=== PATIENT | female | born 1980 | race African-American/Black ===

== ENCOUNTER 2017-08-04 10:19 | Outpatient (CLI) | payer MEDICAID ==
--- NOTE | 2017-08-04 11:01 | Non Stress Test Report ---
Non Stress Test Datetime Report Generated by CPN: 08/04/2017 11:01 DEMOGRAPHIC EGA NST: 37.6 INDICATION Indication for Study: Ordered by Provider; Other Indication for Study (NST) Other: AMA MONITORING Monitor Explained: Monitor Explained; Test Explained; Patient Verbalized Understanding Time on Monitor: 08/04/2017 10:30 Time off Monitor: 08/04/2017 10:51 NST Duration: 21 NST INTERVENTIONS NST Interventions: PO Hydration Physician Notified NST: A Noguera, CNM BABY A: [id number] BABY A Movement : Present Contraction Frequency : none FHR Baseline : 135 Accelerations : 15X15 Decelerations : None Variability : Moderate 6-25bpm NST Review: Meets Criteria for Reactive NST NST Review and Verified By : Ashkan Burns RN NST Results: Reactive NST REPORT Report Trigger: Send Report
== END 2017-08-04 10:55 | disposition home or self-care (01) ==
LOC: LC 10:19
PROVIDERS: ATTEND Obstetrics & Gynecology
PROC: 4A1HXCZ Monitoring of Products of Conception, Cardiac Rate, External Approach (ICD-10-PCS; principal; 2017-08-04)
DX: Z34.93 Encounter for supervision of normal pregnancy, unspecified, third trimester (principal)
CPT/HCPCS: 59025

== ENCOUNTER 2017-08-22 02:54 | Outpatient (CLI) | payer MEDICAID ==
[2017-08-22 03:26] LABS: APPEARANCE,URINE CLOUDY; BILIRUBIN,URINE NEGATIVE (NEGATIVE); COLOR,URINE YELLOW; GLUCOSE, URINE NEGATIVE (NEGATIVE); KETONES,URINE NEGATIVE (NEGATIVE); LEUKOCYTE ESTERASE,URINE NEGATIVE (NEGATIVE); NITRITE,URINE NEGATIVE (NEGATIVE); PROTEIN,URINE NEGATIVE (NEGATIVE); URINE SPECIFIC GRAVITY 1.006; UROBILINOGEN,URINE NEGATIVE mg/dL (<2.0)
[2017-08-22 03:49] LABS: URINE AMPHETAMINES SCREEN NEGATIVE; URINE BARBITURATES SCREEN NEGATIVE; URINE BENZODIAZEPINES SCREEN NEGATIVE; URINE COCAINE SCREEN NEGATIVE; URINE MARIJUANA (THC) SCREEN NEGATIVE; URINE METHADONE SCREEN NEGATIVE; URINE PHENCYCLIDINE SCREEN NEGATIVE
--- NOTE | 2017-08-22 05:44 | Non Stress Test Report ---
Non Stress Test Datetime Report Generated by CPN: 08/22/2017 05:43 DEMOGRAPHIC EGA NST: 40.3 INDICATION Indication for Study: Ordered by Provider MONITORING Monitor Explained: Monitor Explained; Test Explained; Patient Verbalized Understanding Time on Monitor: 08/22/2017 04:58 Time off Monitor: 08/22/2017 05:24 NST Duration: 26 NST INTERVENTIONS NST Interventions: PO Hydration Physician Notified NST: Dr Roy BABY A: [id number] BABY A Contraction Frequency : 3-4 FHR Baseline : 140 Accelerations : 15X15 Decelerations : None Variability : Moderate 6-25bpm NST Review: Meets Criteria for Reactive NST NST Review and Verified By : Heidy De Oliveira RN NST Results: Reactive NST REPORT Report Trigger: Send Report
== END 2017-08-22 05:33 | disposition home or self-care (01) ==
LOC: LC 02:54
PROVIDERS: ATTEND Student in an Organized Health Care Education/Training Program
PROC: 4A1HXCZ Monitoring of Products of Conception, Cardiac Rate, External Approach (ICD-10-PCS; principal; 2017-08-22)
DX: Z34.93 Encounter for supervision of normal pregnancy, unspecified, third trimester (principal)
CPT/HCPCS: 59025; 80307; 81005

== ENCOUNTER 2017-08-22 10:15 | Inpatient (IN) | payer MEDICAID ==
[2017-08-22] MEDS ORDERED: PENICILLIN G-K 5 MILLION UNIT VIAL ONE ×2 (10:31→14:18)
[2017-08-22] MEDS ORDERED: RINGERS SOLUTION,LACTATED 1,000 ML IV ONE (10:33)
[2017-08-22] MEDS ORDERED: PENICILLIN G POTASSIUM 5,000,000 UNIT in DEXTROSE 5%-WATER 100 ML IV ONE (10:33)
[2017-08-22] MEDS ORDERED: OXYTOCIN/NORMAL SALINE 20 UNIT/1,000 ML RTUINJ ONE (10:53)
[2017-08-22] MEDS ORDERED: MISOPROSTOL 0.2 MG TABLET ONE (10:53)
[2017-08-22] MEDS ORDERED: LIDOCAINE 1% INJ-PF (10 MG/ML) 30 ML SDV ONE (10:53)
[2017-08-22 11:27] LABS: ABSOLUTE LYMPHOCYTES (AUTO) 1.3 10^3/uL (0.5-4.7); ABSOLUTE MONOCYTES (AUTO) 0.4 10^3/uL (0.1-1.4); ABSOLUTE NEUT (AUTO) 8.4 10^3/uL (1.7-8.2); BASOPHILS % (AUTO) 0.4 % (0-2); EOSINOPHILS % (AUTO) 0.2 % (0-6); HEMATOCRIT 36.2 % (36.0-47.0); HEMOGLOBIN 12.4 g/dL (12.0-15.5); LYMPHOCYTES % (AUTO) 12.9 % (13-45); MEAN CORPUSCULAR HEMOGLOBIN 31.6 pg (27.0-33.4); MEAN CORPUSCULAR HGB CONC 34.2 g/dL (32.0-36.0); MEAN CORPUSCULAR VOLUME 92 fl (80-97); MONOCYTES % (AUTO) 3.9 % (3-13); PLATELET COUNT 190 10^3/uL (150-450); RED BLOOD COUNT 3.93 10^6/uL (3.72-5.28); RED CELL DISTRIBUTION WIDTH 14.2 % (11.5-14.0); SEGMENTED NEUTROPHILS % (AUTO) 82.6 % (42-78); TOTAL CELLS COUNTED % (AUTO) 100 %; WHITE BLOOD COUNT 10.1 10^3/uL (4.0-10.5)
[2017-08-22] MEDS ORDERED: EPHEDRINE SULFATE INJ 50 MG/1 ML AMPULE ONE (11:34)
[2017-08-22] MEDS ORDERED: FENTANYL CITRATE INJ/PF 100 MCG/2 ML AMPUL ONE (11:34)
[2017-08-22] MEDS ORDERED: BUPIVACAINE HCL 0.25 % INJ/PF (2.5 MG/1 ML) 30 ML VIAL ONE (11:35)
[2017-08-22] MEDS ORDERED: PHENYLEPHRINE HCL INJ/PF 10 MG/1 ML SDV ONE (11:35)
[2017-08-22] MEDS ORDERED: FENTANYL/BUPIVACAINE/NS/PF 300 MCG/150 ML RTUINJ EPI ONE (11:35)
[2017-08-22] MEDS ORDERED: PENICILLIN G POTASSIUM 2,500,000 UNIT in DEXTROSE 5%-WATER 50 ML IV SCH (14:30)
[2017-08-22] MEDS ORDERED: ACETAMINOPHEN 325 MG TABLET PO PRN (14:35)
--- NOTE | 2017-08-22 14:47 | Admission Physical ---
Datetime Report Generated by CPN: 08/22/2017 14:47 CURRENT ADMISSION Chief Complaint: Uterine Contractions Indication for Induction: Not Applicable Admit Impression : Term, Intrauterine ; Active Labor Admit Plan: Admit to Unit; Initiate Labor Protocol ALLERGIES Medication Allergies: No Medication Allergies: No Known Allergies (08/22/2017) Latex: No Latex Allergies Food Allergies: none Environmental Allergies: none OBSTETRICAL HISTORY EDC: 08/19/2017 00:00 : 2 Para: 1 Term: 1 : 0 SAB: 0 IAB: 0 Ectopic: 0 Livin Cesareans: 0 VBACs: 0 Multiple Births: 0 Gestational Diabetes: No Rh Sensitization: No Incompetent Cervix: No JAZIEL: No Infertility: No ART Treatment: No Uterine Anomaly: No IUGR: No Hx Previous C/S: No Macrosomia: No Hx Loss/Stillborn: No PIH: No Hx : No Placenta Previa/Abruption: No Depression/PP Depression: No PTL/PROM: No Post Hemorrhage: No Current Procedures: Ultrasound; NST Obstetrical History Comments: G1: 40 week male 6 lb 14 oz G2: Current, AMA SEE RECORDS Alcohol: No Marijuana : No Cocaine: No Other Illicit Drugs: No Cigarettes: Former Smoker. [id number] Cigarette Comments: stopped when she found out she was MEDICAL HISTORY Diabetes: No Blood Transfusion: No Pulmonary Disease (Asthma, TB): Yes Breast Disease: No Hypertension: No Senior Counsel Surgery: No Heart Disease: No Hosp/Surgery: Yes Autoimmune Disorder: No Anesthetic Complications: No Kidney Disease: No Abnormal Pap Smear: No Neuro/Epilepsy: No Psychiatric Disorders: No Other Medical Diseases: No Hepatitis/Liver Disease: No Significant Family History: No Varicosities/Phlebitis: No Trauma/Violence : No Thyroid Dysfunction: No Medical History Comments: asthma, anemia, hospitalization childbirth INFECTIOUS HISTORY Gonorrhea: No Genital Herpes: No Chlamydia: No Tuberculosis: No Syphilis: No Hepatitis: No HIV/AIDS Exposure: No Rash or Viral Illness: No HPV: No PHYSICAL EXAM General: Normal HEENT: Deferred Neurologic: Normal Thyroid: Deferred Heart: Normal Lungs: Normal Breast: Normal Back: Normal Abdomen: Normal Genitourinary Exam: Normal Extremities: Normal DTRs: Normal Pelvic Type: Adequate Physical Exam Comments: pelvis proven to 8lbs 6 oz Vital Signs: Reviewed; Within Normal Limits VAGINAL EXAM Contraction Comments: 2-3 MEMBRANES Membranes: Intact FETUS A EGA: 40.3 Monitoring: External US FHR- Baseline: 125 Variability: Moderate 6-25bpm Accelerations: 15X15 Decelerations: None FHR Category: Category I Presentation: Vertex Admit Comment: 36yo into L_D this afternoon after being discharge at 0500 in early labor. Pt. is B positive, RI, GBS pos with 2nd dose of PCN on board. Medical hx significant for obesity with an elevated 1hr glucose test in the third trimester but normal 3hr. Pt. denies any other signficant medical hx. Has epidural at this time and reports relief of pain with just intermittent perineal pressure at this time. PLANS FOR LABOR AND DELIVERY Labor and Delivery: None Pain Management: Epidural Feeding Preference: Formula Circumcision: Yes INFORMED CONSENT Assignment: Carlotta Melissa MD Signature: with User ID: [email or web address] : with User ID: [email or web address]
--- NOTE | 2017-08-22 14:53 | L&D Progress Notes ---
PROGRESS NOTES Datetime Report Generated by CPN: 08/22/2017 14:53 PROGRESS NOTE Impression: Normal Progression of Labor Procedures: Artificial ROM; Sterile Vag Exam Plan: Continue Present Management Informed Consent Obtained: Vaginal Delivery; Risks, Benefits and Alternatives Discussed Vital Signs : Reviewed; Within Normal Limits VAGINAL EXAM Dilatation: 7 Effacement: 100 Station: -1 Contractions: 3 Contractions: 2-3 MEMBRANES Membranes: Ruptured Membranes: Intact Amniotic Fluid Color: Clear FETUS A Monitoring: External US Decelerations: None FHR Category: Category I Presentation: Vertex SIGNATURE SIGNATURE: [id number] SIGNATURE: [id number] SIGNATURE: [id number] SIGNATURE: [id number] Assignment: Carlotta Melissa MD Signature: with User ID: [email or web address] : with User ID: [email or web address]
[2017-08-22] MEDS ORDERED: PSEUDOEPHEDRINE HCL 30 MG TABLET PO PRN (18:06)
[2017-08-22] MEDS ORDERED: PROMETHAZINE HCL 25 MG TABLET PO PRN (18:06)
[2017-08-22] MEDS ORDERED: MAGNESIUM HYDROXIDE SUSP 30 ML UDCUP PO PRN (18:06)
[2017-08-22] MEDS ORDERED: ACETAMINOPHEN 650 MG SUPP.RECT PR PRN (18:06)
[2017-08-22] MEDS ORDERED: DIBUCAINE 1% OINTMENT 28 GM TP PRN (18:06)
[2017-08-22] MEDS ORDERED: OXYTOCIN/NORMAL SALINE 20 UNIT/1,000 ML RTUINJ IV PRN (18:06)
[2017-08-22] MEDS ORDERED: MEASLES,MUMPS&RUBELLA VACC/PF 0.5 ML VIAL SUBCUT PRN (18:06)
[2017-08-22] MEDS ORDERED: NA PHOS,M-B/NA PHOS,DI-BA (ADULT) 133 ML ENEMA PR PRN (18:06)
[2017-08-22] MEDS ORDERED: DIPH/PERTUSS(ACELL)/TETANUS VAC/PF 0.5 ML SYR (>=10YO) IM PRN (18:06)
[2017-08-22] MEDS ORDERED: ACETAMINOPHEN WITH CODEINE #3 TABLET PO PRN ×2 (18:06)
[2017-08-22] MEDS ORDERED: BENZOCAINE/MENTHOL AEROSOL SPRAY 56 ML TOP PRN (18:06)
[2017-08-22] MEDS ORDERED: ZOLPIDEM TARTRATE 5 MG TABLET PO PRN (18:06)
[2017-08-22] MEDS ORDERED: PROMETHAZINE HCL INJ 25 MG/1 ML VIAL IV PRN (18:06)
[2017-08-22] MEDS ORDERED: DIPHENHYDRAMINE HCL 25 MG CAPSULE PO PRN (18:06)
[2017-08-22] MEDS ORDERED: PROMETHAZINE HCL 25 MG SUPP.RECT PR PRN (18:06)
[2017-08-22] MEDS ORDERED: GLYCERIN/WITCH HAZEL LEAF 1 EACH MED..PAD TP PRN (18:06)
[2017-08-22] MEDS ORDERED: ALBUTEROL SULFATE HFA (90 MCG/PUFF) 8 GM MDI (1 MDI/ER DISP) IH PRN (18:07)
[2017-08-22] MEDS ORDERED: ALBUTEROL SULFATE HFA (90 MCG/PUFF) 200 PUFF/8.5 GM MDI IH PRN (18:26)
[2017-08-22] MEDS ORDERED: IBUPROFEN 800 MG TABLET ONE (20:15)
[2017-08-22] MEDS: IBUPROFEN 800 MG TABLET PO SCH (20:31)
[2017-08-22] MEDS: FAMOTIDINE 20 MG TABLET PO SCH (21:53)
[2017-08-23] MEDS: IBUPROFEN 800 MG TABLET PO SCH ×3 (05:04→21:15)
[2017-08-23 06:49] LABS: HEMATOCRIT 33.6 % (36.0-47.0); HEMOGLOBIN 11.4 g/dL (12.0-15.5); MEAN CORPUSCULAR HEMOGLOBIN 31.3 pg (27.0-33.4); MEAN CORPUSCULAR VOLUME 92 fl (80-97); PLATELET COUNT 176 10^3/uL (150-450); RED BLOOD COUNT 3.65 10^6/uL (3.72-5.28); RED CELL DISTRIBUTION WIDTH 14.3 % (11.5-14.0); WHITE BLOOD COUNT 14.4 10^3/uL (4.0-10.5)
[2017-08-23] MEDS: PRENATAL VITAMIN W DHA CAPSULE PO SCH (09:50)
[2017-08-23] MEDS: SENNOSIDES/DOCUSATE 8.6-50 MG 1 EACH TABLET PO SCH (09:50)
[2017-08-23] MEDS: DOCUSATE SODIUM 100 MG CAPSULE PO SCH ×2 (09:50→18:51)
[2017-08-23] MEDS: FERROUS SULFATE 325 MG TABLET PO SCH ×2 (09:50→18:51)
[2017-08-23] MEDS: FAMOTIDINE 20 MG TABLET PO SCH ×2 (09:52→21:15)
--- NOTE | 2017-08-23 10:03 | PDOC PROGRESS REPORT ---
Subjective-OB Progress Note for:: 08/23/17 Subjective: Sitting up in bed, doing well, baby sleeping, voiding, no c/o Physical Exam (OB) Vital Signs: Temp Pulse Resp BP Pulse Ox 98.0 F 73 15 107/59 L 99 08/23/17 08:12 08/23/17 08:12 08/23/17 08:12 08/23/17 08:12 08/23/17 08:12 - PIH/Pre-Eclampsia DTR's: 2 + Clonus: Negative Headache: Absent Epigastric Pain: No Visual Changes: No - Lochia Lochia Amount: Scant < 10 ml Lochia Color: Rubra/Red - Abdomen Hernia Present: No Fundal Description: Firm, Midline Fundal Height: u/u - u/2 Objective-Diagnostic Laboratory: 08/23/17 06:20 08/22/17 08/22/17 08/23/17 11:10 11:10 06:20 WBC 10.1 14.4 H RBC 3.93 3.65 L Hgb 12.4 11.4 L Hct 36.2 33.6 L MCV 92 92 MCH 31.6 31.3 MCHC 34.2 34.0 RDW 14.2 H 14.3 H Plt Count 190 176 Seg Neutrophils % 82.6 H Lymphocytes % 12.9 L Monocytes % 3.9 Eosinophils % 0.2 Basophils % 0.4 Absolute Neutrophils 8.4 H Absolute Lymphocytes 1.3 Absolute Monocytes 0.4 Absolute Eosinophils 0.0 Absolute Basophils 0.0 Blood Type B POSITIVE Antibody Screen NEGATIVE Assessment and Plan(PN) - Assessment and Plan (1) Delivery normal Is this a current diagnosis for this admission?: Yes - Time Spent with Patient Time with patient: Less than 15 minutes Medications reviewed and adjusted accordingly: Yes - Disposition Anticipated Discharge: Home Within: within 24 hours
[2017-08-24] MEDS: IBUPROFEN 800 MG TABLET PO SCH ×2 (05:15→13:07)
--- NOTE | 2017-08-24 08:55 | PDOC PROGRESS REPORT ---
Subjective-OB Progress Note for:: 08/24/17 Subjective: Ready to go home. Physical Exam (OB) Vital Signs: Temp Pulse Resp BP Pulse Ox 98.3 F 76 16 100/61 100 08/23/17 19:45 08/23/17 19:45 08/23/17 19:45 08/23/17 19:45 08/23/17 19:45 Intake & Output 08/23/17 08/24/17 08/25/17 06:59 06:59 06:59 Intake Total 350 Balance 350 Weight 119.5 kg - PIH/Pre-Eclampsia DTR's: 2 + Clonus: Negative Headache: Absent Epigastric Pain: No Visual Changes: No - Lochia Lochia Amount: Scant < 10 ml Lochia Color: Rubra/Red - Abdomen Description: Soft, Round Hernia Present: No Bowel Sounds: Normoactive Flatus Presence: Present Stool: No Fundal Description: Firm, Midline Fundal Height: u/u - u/2 Objective-Diagnostic Laboratory: 08/23/17 06:20 Assessment and Plan(PN) - Time Spent with Patient Medications reviewed and adjusted accordingly: Yes - Disposition Anticipated Discharge: Home
--- NOTE | 2017-08-24 08:59 | PDOC DISCHARGE SUMMARY ---
Final Diagnosis Discharge Date: 08/24/17 - Final Diagnosis (1) AMA (advanced maternal age) multigravida 35+ Is this a current diagnosis for this admission?: Yes (2) Delivery normal Is this a current diagnosis for this admission?: Yes (3) Obesity Is this a current diagnosis for this admission?: Yes (4) Positive GBS test Is this a current diagnosis for this admission?: Yes (5) Is this a current diagnosis for this admission?: Yes Discharge Data - Discharge Medication Home Medications: Albuterol Sulfate [Proair HFA] 2 inh IH Q4HP PRN #1 hfa.aer.ad 10/10/14 Vit/Iron Fum/Folic AC [ Tablet] 1 each PO DAILY 08/04/17 Gestational Age: 40.3 wks Reason(s) for Admission: Onset of Labor Procedures: Ultrasound Intrapartum Procedure(s): Spontaneous Vaginal Delivery - [place] Data Baby 1 Male at 1 minute: 9 at 5 minutes: 9 Weight: 3.6 kg Home with Mother: Yes Complications: No - Diagnosis Test Laboratory: Temp Pulse Resp BP Pulse Ox 98.3 F 76 16 100/61 100 08/23/17 19:45 08/23/17 19:45 08/23/17 19:45 08/23/17 19:45 08/23/17 19:45 08/22/17 08/23/17 11:10 06:20 RBC 3.93 3.65 L Hgb 12.4 11.4 L Hct 36.2 33.6 L - Discharge information/Instructions Discharge Activity: Activity As Tolerated, Balance Activity w/Rest, Pelvic Rest , Slowly Increase Activity, No tub bath Discharge Diet: Regular Disposition: HOME, SELF-CARE Follow up with: [facility] in: 4, Weeks
[2017-08-24] MEDS: SENNOSIDES/DOCUSATE 8.6-50 MG 1 EACH TABLET PO SCH (10:00)
[2017-08-24] MEDS: PRENATAL VITAMIN W DHA CAPSULE PO SCH (10:01)
[2017-08-24] MEDS: FAMOTIDINE 20 MG TABLET PO SCH (10:01)
[2017-08-24] MEDS: FERROUS SULFATE 325 MG TABLET PO SCH (10:01)
[2017-08-24] MEDS: DOCUSATE SODIUM 100 MG CAPSULE PO SCH (10:01)
[2017-08-24 11:36] VITALS: BP 100/61
== END 2017-08-24 13:48 | disposition home or self-care (01) | DRG 775 ==
LOC: LC 10:15 → LR 10:32 → 2N 20:50
PROVIDERS: ADMIT Obstetrics & Gynecology; ATTEND Obstetrics & Gynecology
PROC: 10E0XZZ Delivery of Products of Conception, External Approach (ICD-10-PCS; principal; 2017-08-22)
PROC: 10907ZC Drainage of Amniotic Fluid, Therapeutic from Products of Conception, Via Natural or Artificial Opening (ICD-10-PCS; 2017-08-22)
PROC: 4A1HXCZ Monitoring of Products of Conception, Cardiac Rate, External Approach (ICD-10-PCS; 2017-08-22)
PROC: 3E0234Z Introduction of Serum, Toxoid and Vaccine into Muscle, Percutaneous Approach (ICD-10-PCS; 2017-08-24)
DX: O99.824 Streptococcus B carrier state complicating childbirth (principal); Z68.41 Body mass index [BMI] 40.0-44.9, adult; O99.214 Obesity complicating childbirth; E66.9 Obesity, unspecified; O99.52 Diseases of the respiratory system complicating childbirth; J45.909 Unspecified asthma, uncomplicated; O99.02 Anemia complicating childbirth; D64.9 Anemia, unspecified; O76 Abnormality in fetal heart rate and rhythm complicating labor and delivery; O77.0 Labor and delivery complicated by meconium in amniotic fluid; Z87.891 Personal history of nicotine dependence; Z23 Encounter for immunization; Z3A.40 40 weeks gestation of pregnancy; Z37.0 Single live birth
CPT/HCPCS: 36415; 85025; 85027; 86592; 86850; 86900; 86901; 90715; 94760; J2370; J2540; J2590; J3010; J3490

== ENCOUNTER 2017-10-20 05:35 | Day surgery (SDC) | payer MEDICAID ==
[2017-10-16 12:22] LABS: APPEARANCE,URINE CLEAR; BILIRUBIN,URINE NEGATIVE (NEGATIVE); COLOR,URINE STRAW; GLUCOSE, URINE NEGATIVE (NEGATIVE); KETONES,URINE NEGATIVE (NEGATIVE); LEUKOCYTE ESTERASE,URINE NEGATIVE (NEGATIVE); NITRITE,URINE NEGATIVE (NEGATIVE); PROTEIN,URINE NEGATIVE (NEGATIVE); URINE SPECIFIC GRAVITY 1.005; UROBILINOGEN,URINE NEGATIVE mg/dL (<2.0)
[2017-10-16 12:23] LABS: HEMATOCRIT 40.8 % (36.0-47.0); HEMOGLOBIN 14.1 g/dL (12.0-15.5); MEAN CORPUSCULAR HEMOGLOBIN 31.8 pg (27.0-33.4); MEAN CORPUSCULAR HGB CONC 34.4 g/dL (32.0-36.0); MEAN CORPUSCULAR VOLUME 92 fl (80-97); PLATELET COUNT 239 10^3/uL (150-450); RED BLOOD COUNT 4.42 10^6/uL (3.72-5.28); RED CELL DISTRIBUTION WIDTH 13.5 % (11.5-14.0); WHITE BLOOD COUNT 7.3 10^3/uL (4.0-10.5)
[~2017-10-20 05:35] MED LIST: LACTATED RINGERS 1000 ML IV PRN; LIDOCAINE 0.5% INJ-PF (5 MG/ML) 50 ML SDV SUBCUT PRN
[2017-10-20] MEDS ORDERED: MIDAZOLAM 2 MG/2 ML INJ ONE (06:50)
[2017-10-20] MEDS ORDERED: FENTANYL CITRATE INJ/PF 100 MCG/2 ML AMPUL ONE (06:50)
[2017-10-20] MEDS ORDERED: ACETAMINOPHEN 1,000 MG/100 ML RTUPB IV ONE (06:51)
[2017-10-20] MEDS ORDERED: PROPOFOL INJ 200 MG/20 ML VIAL IV ONE (06:51)
[2017-10-20] MEDS ORDERED: HYDROMORPHONE HCL INJ/PF 2 MG/ML AMPULE ONE (06:51)
[2017-10-20] MEDS ORDERED: DEXAMETHASONE SOD PHOSPHATE INJ 4 MG/1 ML VIAL ONE (07:06)
[2017-10-20] MEDS ORDERED: ONDANSETRON HCL INJ/PF 4 MG/2 ML SDV IV PRN (08:00)
[2017-10-20] MEDS ORDERED: OXYCODONE-ACETAMINOPHEN 5-325 MG TABLET PO PRN ×4 (08:00→08:42)
[2017-10-20] MEDS ORDERED: FENTANYL CITRATE INJ/PF 100 MCG/2 ML AMPUL IV PRN ×3 (08:00)
[2017-10-20] MEDS ORDERED: MORPHINE SULFATE 10 MG/ML INJ IV PRN (08:00)
[2017-10-20] MEDS ORDERED: DIPHENHYDRAMINE HCL 50 MG/ML VIAL IV PRN (08:00)
[2017-10-20] MEDS ORDERED: MEPERIDINE HCL/PF INJ 25 MG/1 ML DISP.SYRIN IV PRN (08:00)
[2017-10-20] MEDS ORDERED: PROMETHAZINE HCL INJ 25 MG/1 ML VIAL IV PRN (08:00)
--- NOTE | 2017-10-20 08:33 | Operative Report ---
Operative Report DATE OF SURGERY: 10/20/17 PREOPERATIVE DIAGNOSIS: Patient desires tubal ligation POSTOPERATIVE DIAGNOSIS: Same and a uterine fibroid OPERATION: Laparoscopic bilateral Filshie clip application SURGEON: WINIFRED JAVED ANESTHESIA: GA TISSUE REMOVED OR ALTERED: Fallopian tubes COMPLICATIONS: None ESTIMATED BLOOD LOSS: None INTRAOPERATIVE FINDINGS: Normal fallopian tubes and ovaries. She has a 3 cm fibroid at the right fundus of the uterus. PROCEDURE: Patient was taken the OR and placed in supine position. General anesthesia was induced. She is placed in dorsolithotomy position using Jozef stirrups. Her abdomen and vagina peritoneum were prepared and draped in sterile fashion. Her bladder was drained with a red rubber catheter. A sponge stick was placed in the vagina for manipulation of the uterus. Incision was made the umbilicus and natural umbilical defect was identified and dilated with Lin clamp. This allowed the placement of a blunt port. Laparoscopy confirmed appropriate placement. The abdomen was insufflated with CO2 gas. Each fallopian tube was identified and followed out to its fimbriated end. A Filshie clip was then placed across the mid isthmic portion of each fallopian tube. Photos were taken. The gas was allowed to escape from the abdomen the port and scope were removed at the same time. The fascia at the umbilicus was closed with a 2-0 Vicryl stitch and skin closed with 4-0 undyed Vicryl stitch. Wound was dressed the sponge stick was removed from the vagina. Patient was extubated and taken to recovery in stable condition.
[2017-10-20] MEDS ORDERED: RINGERS SOLUTION,LACTATED 1,000 ML IV PRN (08:40)
[2017-10-20] MEDS ORDERED: IBUPROFEN 800 MG TABLET PO PRN (08:41)
[2017-10-20] MEDS ORDERED: KETOROLAC TROMETHAMINE INJ/PF 30 MG/1 ML SDV IV PRN (08:41)
[2017-10-20 10:31] VITALS: BP 115/88
[2017-10-20] MEDS ORDERED: ROCURONIUM BROMIDE INJ 50 MG/5 ML VIAL IV ONE (14:49)
[2017-10-20] MEDS ORDERED: SUCCINYLCHOLINE CHLORIDE INJ 200 MG/10 ML VIAL ONE (14:49)
== END 2017-10-20 10:30 | disposition home or self-care (01) ==
LOC: OROUT 05:35
PROVIDERS: ATTEND Obstetrics & Gynecology
DX: Z30.2 Encounter for sterilization (principal); Z87.891 Personal history of nicotine dependence; J45.909 Unspecified asthma, uncomplicated; D64.9 Anemia, unspecified; E66.9 Obesity, unspecified; Z68.39 Body mass index [BMI] 39.0-39.9, adult
CPT/HCPCS: 36415; 85027; 81005; 81025; 58671; J2250; J3490; J1100; J1170; J0330; J2704; J0131; 851; J3010